=== PATIENT | male | born 1930 | race Caucasian/White ===

== ENCOUNTER 2018-09-17 16:44 | Emergency (ER) | payer MEDICARE, MEDICAID, OTHER ==
[2018-09-17 18:41] LABS: HEMATOCRIT 33.2 % (42.0-52.0); HEMOGLOBIN 10.6 g/dl (13.5-17.5); MEAN CORPUSCULAR HEMOGLOBIN 32.8 pg (27.0-33.0); MEAN CORPUSCULAR HGB CONC 31.9 g/dl (32.0-36.5); MEAN CORPUSCULAR VOLUME 102.8 fl (80.0-96.0); PLATELET COUNT, AUTOMATED 213 10^3/uL (150-450); RED BLOOD COUNT 3.23 10^6/uL (4.30-6.10); WHITE BLOOD COUNT 6.2 10^3/uL (4.0-10.0)
[2018-09-17 19:16] LABS: ACETAMINOPHEN LEVEL 3.9 UG/ML (10.0-30.0); ALBUMIN 2.6 GM/DL (3.2-5.2); ALBUMIN/GLOBULIN RATIO 0.87 (1.00-1.93); ALKALINE PHOSPHATASE 97 U/L (45-117); ALT/SGPT 8 U/L (12-78); ANION GAP 10 MEQ/L (8-16); AST/SGOT 20 U/L (7-37); BILIRUBIN,DIRECT 0.1 MG/DL (0.0-0.2); BILIRUBIN,TOTAL 0.5 MG/DL (0.2-1.0); BLOOD UREA NITROGEN 22 MG/DL (7-18); CALCIUM LEVEL 7.5 MG/DL (8.8-10.2); CARBON DIOXIDE LEVEL 30 MEQ/L (21-32); CHLORIDE LEVEL 107 MEQ/L (98-107); CREATININE FOR GFR 0.93 MG/DL (0.70-1.30); ETHYL ALCOHOL (ETHANOL) < 0.003 % (0.000-0.010); GLOMERULAR FILTRATION RATE > 60.0 (>35); GLUCOSE, FASTING 90 MG/DL (70-100); POTASSIUM SERUM 3.1 MEQ/L (3.5-5.1); SALICYLATE LEVEL < 1.7 MG/DL (5.0-30.0); SODIUM LEVEL 147 MEQ/L (136-145); THYROID STIMULATING HORMONE 0.631 uIU/ML (0.358-3.740); TOTAL PROTEIN 5.6 GM/DL (6.4-8.2)
[2018-09-17 21:04] LABS: KETONE, URINE AUTO RFX TRACE mg/dL (NEGATIVE); LEUKOCYTE ESTERASE UR AUTO RFX NEGATIVE (NEGATIVE); NITRITE, URINE AUTO RFX NEGATIVE (NEGATIVE); RBC, URINE AUTO RFX 6 /HPF (0-3); SPECIFIC GRAVITY UR AUTO RFX 1.015 (1.002-1.035); SQUAM EPITHELIAL CELL UR AURFX 0 /HPF (0-6); WBC, URINE AUTO RFX 1 /HPF (0-3)
[2018-09-17 21:19] LABS: AMPHETAMINES LEVEL URINE NEGATIVE (NEGATIVE); BARBITURATES URINE NEGATIVE (NEGATIVE); BENZODIAZEPINES URINE NEGATIVE (NEGATIVE); CANNABINOIDS URINE NEGATIVE (NEGATIVE); COCAINE METABOLITE URINE NEGATIVE (NEGATIVE); METHADONE URINE NEGATIVE (NEGATIVE); OPIATES URINE NEGATIVE (NEGATIVE); PHENCYCLIDINE URINE NEGATIVE (NEGATIVE)
[2018-09-17 22:07] LABS: INR 1.62; PROTHROMBIN TIME 19.5 SECONDS (12.1-14.4)
[2018-09-17 22:08] LABS: PARTIAL THROMBOPLASTIN TIME 38.9 SECONDS (25.4-37.6)
[2018-09-17] MEDS: POTASSIUM CHLORIDE 10 MEQ SR TABLET PO (22:19)
== END 2018-09-18 | disposition home or self-care (01) ==
LOC: M ED 09-18
DX: F32.9 Major depressive disorder, single episode, unspecified (principal); I44.0 Atrioventricular block, first degree; G20 Parkinson's disease; Z98.890 Other specified postprocedural states; Z96.649 Presence of unspecified artificial hip joint; Z88.1 Allergy status to other antibiotic agents; Z88.5 Allergy status to narcotic agent; Z88.2 Allergy status to sulfonamides; Z88.0 Allergy status to penicillin; Z88.8 Allergy status to other drugs, medicaments and biological substances; Z79.899 Other long term (current) drug therapy; Z79.01 Long term (current) use of anticoagulants
CPT/HCPCS: 71045

== ENCOUNTER 2019-06-07 16:34 | Inpatient (IN) | payer MEDICARE, MEDICAID ==
[~2019-06-07 16:34] MED LIST: ACET65TA; ASPI81TA3; COUM1TAB18; FLOM0.4C39; HYDR25TA6; ISOS20TA3; LISI40TA; PRAV1TAB39; TENO50TA; TRAM50TA2; VITAMIN B12; VITAMIN C
[2019-06-07 18:00] VITALS: BP 135/63
--- NOTE | 2019-06-07 18:34 | HPEPDOC ---
[facility] Medical History & Physical Date of Admission Jun 07, 2019 History and Physical CHIEF COMPLAINT: GI bleed HISTORY OF PRESENT ILLNESS: 88 yo male transferred from [facility] for GI bleed. Patient orginally admitted for altered mental status, with recent history of CDiff infection. Patient was found to have a urinary tract infection, and developed heme + areli colored stools. He previously did have blood in his stools, and was seen by GI with recs for colonoscopy at a later date after his CDiff had resolved. His CDiff PCR was negative x 2 at [place]. His hemoglobin dropped to 6.7 g/dL, and he was transferred 1 unit PRBC. He apparently has a chronic indwelling merritt catheter secondary to abdominal pain as per report. Imaging showed ileus vs colitis (CT abd/pelvis). PAST MEDICAL HISTORY: 1. Recent CDiff 2. Parkinsons 3. Afib 4. BPH ALLERGIES: Please see below. REVIEW OF SYSTEMS: Unable to assess. HOME MEDICATIONS: Please see below. PHYSICAL EXAMINATION: VITAL SIGNS: See below GENERAL APPEARANCE: NAD, lying comfortably in bed HEENT: NC/AT, PERRL CARDIOVASCULAR: +S1S2, RRR LUNGS: CTA B/L ABDOMEN: soft, obese, +BS EXT: chronic venous stasis changes NEUROLOGICAL: follow simple commands, awake, alert, oriented only to person and president LABORATORY DATA: See below. IMAGING: MICROBIOLOGY: Please see below. ASSESSMENT: 88 yo male transferred from [place] for GI bleed/anemia, originally admitted for AMS with PMHx or recent Cdiff and UTI. #AMS - baseline unknown - CT head pending #anemia/GI bleed - serial H/H - GI consultation - possible colonoscopy - clear liquid diet #Parkinsons - continue home meds #BPH - continue home meds #Afib - rate controlled - a/c with xarleto - on hold #DVT prophylaxis - mechanical Home Medications Scheduled Amiodarone Hcl (Pacerone) 200 Mg Tablet, 200 MG PO DAILY Carbidopa/Levodopa (Carbidopa-Levodopa 25-100 Tab) 1 Each Tablet, 1 TAB PO 6XD Donepezil HCl (Donepezil HCl) 10 Mg Tablet, 10 MG PO QHS Ferrous Sulfate (Ferrous Sulfate) 325 Mg Tablet.dr, 325 MG PO BID Furosemide (Furosemide) 40 Mg Tablet, 40 MG PO DAILY Isosorbide Mononitrate (Isosorbide Mononitrate ER) 30 Mg Tab.er.24h, 30 MG PO DAILY Lactobacillus Acidophilus (Probiotic Acidophilus) 1.5 Mg Capsule, 1 CAP PO BID Levothyroxine Sodium (Levothyroxine Sodium) 112 Mcg Tablet, 112 MCG PO DAILY TAKES AT 0700 WITH 25MCG TAB TO EQUAL 137MCG Levothyroxine Sodium (Levothyroxine Sodium) 25 Mcg Tablet, 25 MCG PO DAILY TAKES AT 0600 WITH 112MCG TAB TO EQUAL 137MCG. Midodrine HCl (Midodrine HCl) 5 Mg Tablet, 5 MG PO TID 0800/1200/1600 Prazosin Hcl (Prazosin HCl) 1 Mg Capsule, 1 MG PO QHS Rasagiline Mesylate (Azilect) 0.5 Mg Tablet, 0.5 MG PO DAILY Rivaroxaban (Xarelto) 20 Mg Tablet, 20 MG PO QPM D/C AT [facility] ON 06/05. TAKES WITH DINNER Sertraline Hcl (Sertraline HCl) 50 Mg Tablet, 50 MG PO DAILY Spironolactone (Spironolactone) 25 Mg Tablet, 12.5 MG PO DAILY Tamsulosin HCl (Flomax) 0.4 Mg Capsule, 0.4 MG PO DAILY Vancomycin Hcl (Vancomycin HCl) 125 Mg Capsule, 125 MG PO QID D/C AT [facility] ON 06/06 Scheduled PRN Acetaminophen (Acetaminophen) 325 Mg Tablet, 650 MG PO Q4H PRN for PAIN Allergies Coded Allergies: Penicillins (Verified Allergy, Severe, HIVES,THROAT CLOSES, 06/08/19) cephalexin (Verified Allergy, Unknown, 06/08/19) erythromycin base (Verified Allergy, Unknown, 06/08/19) hydrocodone (Verified Allergy, Unknown, 06/08/19) morphine (Verified Allergy, Unknown, 06/08/19) streptokinase (Verified Allergy, Unknown, 06/08/19) sulfamethoxazole (Verified Allergy, Unknown, 06/08/19) trimethoprim (Verified Allergy, Unknown, 06/08/19) oxycodone (Verified Adverse Reaction, Intermediate, HALLUCINATIONS, 06/08/19) A-FIB/CHADSVASC A-FIB History Current/History of A-Fib/PAF?: No Current PO Anticoag Therapy: No DILCIA WEST MD Jun 07, 2019 18:34
[2019-06-07] MEDS ORDERED: POTA20EL PO (19:15)
[2019-06-07] MEDS ORDERED: LEVO25TA5 PO (19:18)
[2019-06-07] MEDS ORDERED: LEVO112T2 PO (19:18)
[2019-06-07] MEDS ORDERED: PACE200T PO (19:18)
[2019-06-07] MEDS ORDERED: AZIL0.5T PO (19:18)
[2019-06-07] MEDS ORDERED: FLOM0.4C39 PO (19:18)
[2019-06-07] MEDS ORDERED: SERT-141 PO (19:20)
[2019-06-07] MEDS ORDERED: XARE20TA PO (19:20)
[2019-06-07] MEDS ORDERED: MIDO5TA PO (19:20)
[2019-06-07 19:21] LABS: BASO % 0.2 % (0.0-1.0); EOS # 0.1 10^3/uL (0.0-0.50); EOS % 0.9 % (0.0-3.0); HEMATOCRIT 27.2 % (42.0-52.0); HEMOGLOBIN 8.3 g/dl (13.5-17.5); LYMPH # 0.5 10^3/uL (1.5-4.5); LYMPH % 7.4 % (24.0-44.0); MEAN CORPUSCULAR HEMOGLOBIN 28.7 pg (27.0-33.0); MEAN CORPUSCULAR HGB CONC 30.5 g/dl (32.0-36.5); MEAN CORPUSCULAR VOLUME 94.1 fl (80.0-96.0); MONO # 0.5 10^3/uL (0.0-0.8); MONO % 7.8 % (0.0-5.0); NEUTROPHILS # 5.3 10^3/uL (1.8-7.7); NEUTROPHILS % 83.1 % (36.0-66.0); PLATELET COUNT, AUTOMATED 174 10^3/uL (150-450); RED BLOOD COUNT 2.89 10^6/uL (4.30-6.10); WHITE BLOOD COUNT 6.3 10^3/uL (4.0-10.0)
[2019-06-07] MEDS ORDERED: DONE10TA90 PO (19:21)
[2019-06-07] MEDS ORDERED: VANC125C3 PO (19:22)
[2019-06-07] MEDS ORDERED: FERR325T3 PO (19:22)
[2019-06-07] MEDS ORDERED: CARB25TA9 PO (19:25)
[2019-06-07] MEDS ORDERED: NON-325T5 PO (19:25)
[2019-06-07] MEDS ORDERED: PROB1CAP10 PO (19:25)
[2019-06-07 19:27] LABS: ALBUMIN 2.1 GM/DL (3.2-5.2); ALT/SGPT 6 U/L (12-78); BILIRUBIN,TOTAL 0.9 MG/DL (0.2-1.0); BLOOD UREA NITROGEN 13 MG/DL (7-18); CALCIUM LEVEL 7.5 MG/DL (8.8-10.2); CARBON DIOXIDE LEVEL 24 MEQ/L (21-32); CHLORIDE LEVEL 116 MEQ/L (98-107); GLOMERULAR FILTRATION RATE > 60.0 (>35); GLUCOSE, FASTING 86 MG/DL (70-100); SODIUM LEVEL 148 MEQ/L (136-145); TOTAL PROTEIN 5.8 GM/DL (6.4-8.2)
[2019-06-07] MEDS ORDERED: ISOS30TA4 PO (19:28)
[2019-06-07] MEDS ORDERED: SPIR-10 PO (19:28)
[2019-06-07] MEDS ORDERED: PRAZ1CAP PO (19:28)
[2019-06-07] MEDS ORDERED: FURO40TA2 PO (19:28)
[2019-06-07 19:32] LABS: ABG BASE EXCESS -1.4 (-2.0-2.0); ABG HCO3 22.9 MEQ/L (22.0-26.0); ABG O2 SATURATION 95.1 % (95.0-99.0); ABG PARTIAL PRESSURE CO2 36.6 mmHg (35.0-45.0); ABG PARTIAL PRESSURE O2 76.9 mmHg (75.0-100.0); ABG STANDARD HCO3 23.2 MEQ/L (22.0-26.0); ABG pH (ARTERIAL) 7.414 UNITS (7.350-7.450)
[2019-06-07 20:00] VITALS: BP 162/76
[2019-06-07 21:30] VITALS: BP 130/70
--- NOTE | 2019-06-07 21:42 | CR ---
DATE OF CONSULTATION: 06/07/2019 REQUESTING PHYSICIAN: Hospitalist service. REASON FOR CONSULTATION: Decreasing hemoglobin, heme-positive stools and diarrhea. HISTORY OF PRESENT ILLNESS Mr. Townsend is an 88-year-old gentleman with multiple medical problems including Parkinson's disease, depression, anemia, atrial fibrillation, coronary artery disease, reflux, obstructive uropathy. He was recently diagnosed with C diff on one of his admissions at [facility] where he was admitted for urinary tract infection. He was apparently seen there for decreasing hemoglobin, however, it was felt that anemia was the result from his C diff colitis. He was treated with a ten day course of vancomycin; last dose per chart transfer is noted as having been given on 06/02/2019. Apparently additional testing on the stool was done which showed C diff negativity, however, the patient was having diarrhea at that time and was also noted to have some maroon, areli, green and black stools. Due to doing decreasing hemoglobin, the patient was transferred to [facility] for further evaluation. PAST MEDICAL HISTORY: Parkinson's, depression, hypertension, iron deficiency anemia, atrial fibrillation, constipation, Clostridium difficile colitis. PAST SURGICAL HISTORY: Knee surgery. FAMILY HISTORY: Hypertension, COPD, coronary artery disease. Negative for colorectal carcinoma, inflammatory bowel disease. SOCIAL HISTORY: Negative for tobacco, negative for alcohol. The patient lives at [facility] for rehab and nursing. ALLERGIES: STREPTOKINASE, PERCOCET, HYDROCODONE, ERYTHROMYCIN, KEFLEX AND PENICILLIN. MEDICATIONS: As per transfer records include: Tamsulosin, donepezil, cyanocobalamin, milk of magnesia, Zoloft, acetaminophen, amiodarone, carbidopa, iron sulfate, furosemide, isosorbide, levothyroxine, midodrine, KCl, prazosin, spironolactone, Xarelto, vancomycin - last dose 06/02/2019, Levaquin. REVIEW OF SYSTEMS: Is not reliably obtainable as the patient is slightly confused. PHYSICAL EXAMINATION: Vital signs: Temperature 98.1, pulse 67, respiratory rate 20, blood pressure 135/63, pulse ox 92% on room air. General: He is awake, alert and oriented times at least 2. He is somewhat confused about place. Head, eyes, ears, nose and throat: Is grossly without abnormality. There is no oral thrush. Negative for scleral icterus. Neck is supple, no lymphadenopathy, thyromegaly. Chest is coarse distant breath sounds. No rhonchi or crackles or wheezes. Abdomen is soft, obese, nontender. Positive bowel sounds. No masses are appreciated. Extremities: Is negative for edema. LABORATORY FINDINGS Hemoglobin 8.3, (this is status post 1 unit of packed RBCs at [facility] earlier today). WBC 6.3, platelet count 174, sodium 148, potassium 3.0, chloride 116, BUN 13, creatinine 1.0, albumin 2.1. IMPRESSION 1. Progressive anemia. 2. Blood in stool. 3. Diarrhea / recent history of C diff colitis treated with vancomycin. 4. Chronic UTI 5. Anticoagulation for atrial fibrillation. DISCUSSION I think his anemia is likely multifactorial including related to his multiple active medical conditions as well as recent and/or present Clostridium difficile colitis. His hemoglobin is dropping and his stools have been described in the chart as "areli", "brown", and "black", but also has been described as greenish loose. At this time, it is difficult to localize the source for his blood loss to lower or to upper. At this time I would recommend the followin. Monitor blood count and transfuse if necessary. 2. Monitor stools for recurrent diarrhea - I am somewhat suspicious that he still may have C diff. 3. Upper endoscopy and colonoscopy is recommended--He is quite vehemently refusing any endoscopic procedure this evening. I will rediscuss this with him when his family is at bedside tomorrow. MAE
[2019-06-07 23:04] LABS: HEMATOCRIT 24.8 % (42.0-52.0); HEMOGLOBIN 7.7 g/dl (13.5-17.5)
[2019-06-07 23:59] VITALS: BP 126/60
[2019-06-08] VITALS (9 sets, daily range): BP systolic 130–188; BP diastolic 63–91
[2019-06-08] MEDS ORDERED: POTASSIUM CHLORIDE 10 MEQ SR TABLET PO ONE ×2 (00:15→06:30)
[2019-06-08 05:58] LABS: HEMATOCRIT 28.3 % (42.0-52.0); HEMOGLOBIN 8.8 g/dl (13.5-17.5); MEAN CORPUSCULAR HEMOGLOBIN 29.7 pg (27.0-33.0); MEAN CORPUSCULAR HGB CONC 31.1 g/dl (32.0-36.5); MEAN CORPUSCULAR VOLUME 95.6 fl (80.0-96.0); PLATELET COUNT, AUTOMATED 139 10^3/uL (150-450); RED BLOOD COUNT 2.96 10^6/uL (4.30-6.10); WHITE BLOOD COUNT 5.6 10^3/uL (4.0-10.0)
[2019-06-08 06:23] LABS: ALBUMIN 2.1 GM/DL (3.2-5.2); ALT/SGPT < 6 U/L (12-78); BILIRUBIN,TOTAL 0.5 MG/DL (0.2-1.0); BLOOD UREA NITROGEN 10 MG/DL (7-18); CALCIUM LEVEL 7.6 MG/DL (8.8-10.2); CARBON DIOXIDE LEVEL 28 MEQ/L (21-32); CHLORIDE LEVEL 115 MEQ/L (98-107); CREATININE FOR GFR 1.02 MG/DL (0.70-1.30); GLOMERULAR FILTRATION RATE > 60.0 (>35); GLUCOSE, FASTING 93 MG/DL (70-100); POTASSIUM SERUM 2.8 MEQ/L (3.5-5.1); SODIUM LEVEL 149 MEQ/L (136-145); TOTAL PROTEIN 5.2 GM/DL (6.4-8.2)
[2019-06-08] MEDS: KCL 10MEQ/100ML SWI (KRUN) 10 MEQ in APPROPRIATE DILUENT 1 EA IV SCH ×4 (06:59→12:08)
[2019-06-08] MEDS ORDERED: LEVOTHYROXINE 25MCG TABLET (0.025MG) PO SCH (09:00)
[2019-06-08] MEDS ORDERED: FERROUS SULFATE 325MG TAB PO SCH (09:00)
--- NOTE | 2019-06-08 09:00 | IPNPDOC ---
Text Note Date of Service The patient was seen on 06/08/19. NOTE Subjective: Patient seen and examined at bedside. More alert today. Daughter at bedside. Patient has no medical complaints, but is a poor historian. Objective: VITAL SIGNS: See below GENERAL APPEARANCE: NAD, lying comfortably in bed HEENT: NC/AT, PERRL CARDIOVASCULAR: +S1S2, RRR LUNGS: CTA B/L ABDOMEN: soft, obese, +BS EXT: chronic venous stasis changes NEUROLOGICAL: follow simple commands, awake, alert, oriented only to person and president LABORATORY DATA: See below. ASSESSMENT: 88 yo male transferred from [place] for GI bleed/anemia, originally admitted for AMS with PMHx or recent Cdiff and UTI. #AMS - improving - daughter at bedside states not at baseline - CT head pending #anemia/GI bleed - serial H/H - GI consultation - possible colonoscopy - clear liquid diet #Parkinsons - continue home meds #BPH - continue home meds #Afib - rate controlled - a/c with xarleto - on hold #DVT prophylaxis - mechanical VS,Fishbone, I+O VS, Fishbone, I+O Laboratory Tests 06/07/19 18:48 Red Blood Count 2.89 L, Mean Corpuscular Volume 94.1, Mean Corpuscular Hemoglobin 28.7, Mean Corpuscular Hemoglobin Concent 30.5 L, Red Cell Distribution Width 17.0 H, Neutrophils (%) (Auto) 83.1 H, Lymphocytes (%) (Auto) 7.4 L, Monocytes (%) (Auto) 7.8 H, Eosinophils (%) (Auto) 0.9, Basophils (%) (Auto) 0.2, Neutrophils # (Auto) 5.3, Lymphocytes # (Auto) 0.5 L, Monocytes # (Auto) 0.5, Eosinophils # (Auto) 0.1, Basophils # (Auto) 0.0, Calcium Level 7.5 L, Aspartate Amino Transf (AST/SGOT) 16, Alanine Aminotransferase (ALT/SGPT) 6 L, Alkaline Phosphatase 69, Total Bilirubin 0.9, Total Protein 5.8 L, Albumin 2.1 L 06/07/19 22:51 06/08/19 05:42 Red Blood Count 2.96 L, Mean Corpuscular Volume 95.6, Mean Corpuscular Hemoglobin 29.7, Mean Corpuscular Hemoglobin Concent 31.1 L, Red Cell Distribution Width 17.0 H, Calcium Level 7.6 L, Aspartate Amino Transf (AST/SGOT) 15, Alanine Aminotransferase (ALT/SGPT) < 6 L, Alkaline Phosphatase 64, Total Bilirubin 0.5, Total Protein 5.2 L, Albumin 2.1 L Vital Signs Date Time Temp Pulse Resp B/P (MAP) Pulse Ox O2 Delivery O2 Flow Rate FiO2 06/08/19 05:57 97.6 63 18 134/70 (91) 94 I&O- Last 24 Hours up to 6 AM 06/08/19 06:00 Intake Total 0 ml Output Total 0 ml Balance 0 ml DILCIA WEST MD Jun 08, 2019 09:00
[2019-06-08] MEDS: SPIRONOLACTONE 12.5MG PER 1/2 TABLET PO SCH (09:28)
[2019-06-08] MEDS: FUROSEMIDE 40 MG TAB PO SCH (09:28)
[2019-06-08] MEDS: SERTRALINE HCL 50 MG TAB PO SCH (09:28)
[2019-06-08] MEDS: TAMSULOSIN 0.4 MG CAP PO SCH (09:29)
[2019-06-08] MEDS: SINEMET 25-100 MG TAB PO SCH ×5 (09:29→20:55)
[2019-06-08] MEDS: AMIODARONE 200 MG TAB (PACERONE) PO SCH (09:29)
[2019-06-08] MEDS: ISOSORBIDE MON. (IMDUR) 30 MG XR TAB PO SCH (09:30)
[2019-06-08] MEDS: MIDODRINE 5 MG TAB PO SCH ×3 (10:04→18:35)
[2019-06-08] MEDS: VANCOMYCIN ORAL SOL 250MG/5ML ORAL SYRINGE PO SCH ×4 (10:05→23:57)
[2019-06-08 11:35] LABS: CLOSTRIDIUM DIFFICILE PCR NEGATIVE (NEGATIVE)
[2019-06-08] MEDS: LEVOTHYROXINE 137MCG TABLET (0.137MG) PO SCH (12:08)
[2019-06-08] MEDS: PRAZOSIN 1 MG CAP PO SCH (20:55)
[2019-06-08] MEDS: DONEPEZIL 5 MG TAB PO SCH (20:55)
[2019-06-08] MEDS ORDERED: RIVAROXABAN 20 MG TAB (XARELTO) PO SCH (21:00)
[2019-06-09] VITALS (7 sets, daily range): BP systolic 105–139; BP diastolic 56–79
[2019-06-09] MEDS: LEVOTHYROXINE 137MCG TABLET (0.137MG) PO SCH (06:05)
[2019-06-09] MEDS: VANCOMYCIN ORAL SOL 250MG/5ML ORAL SYRINGE PO SCH ×3 (06:05→17:17)
[2019-06-09] MEDS: SINEMET 25-100 MG TAB PO SCH ×6 (06:05→20:23)
[2019-06-09 06:10] LABS: BASO % 0.2 % (0.0-1.0); EOS # 0.1 10^3/uL (0.0-0.50); EOS % 1.4 % (0.0-3.0); HEMOGLOBIN 8.6 g/dl (13.5-17.5); LYMPH # 0.4 10^3/uL (1.5-4.5); LYMPH % 6.4 % (24.0-44.0); MEAN CORPUSCULAR HEMOGLOBIN 29.5 pg (27.0-33.0); MEAN CORPUSCULAR HGB CONC 30.7 g/dl (32.0-36.5); MEAN CORPUSCULAR VOLUME 95.9 fl (80.0-96.0); MONO # 0.5 10^3/uL (0.0-0.8); MONO % 8.7 % (0.0-5.0); NEUTROPHILS # 4.7 10^3/uL (1.8-7.7); NEUTROPHILS % 82.8 % (36.0-66.0); PLATELET COUNT, AUTOMATED 125 10^3/uL (150-450); RED BLOOD COUNT 2.92 10^6/uL (4.30-6.10); WHITE BLOOD COUNT 5.7 10^3/uL (4.0-10.0)
[2019-06-09 06:43] LABS: ALBUMIN 2.1 GM/DL (3.2-5.2); ALT/SGPT < 6 U/L (12-78); BILIRUBIN,TOTAL 0.5 MG/DL (0.2-1.0); BLOOD UREA NITROGEN 7 MG/DL (7-18); CALCIUM LEVEL 7.6 MG/DL (8.8-10.2); CARBON DIOXIDE LEVEL 29 MEQ/L (21-32); CHLORIDE LEVEL 109 MEQ/L (98-107); CREATININE FOR GFR 0.99 MG/DL (0.70-1.30); GLOMERULAR FILTRATION RATE > 60.0 (>35); GLUCOSE, FASTING 90 MG/DL (70-100); POTASSIUM SERUM 2.8 MEQ/L (3.5-5.1); SODIUM LEVEL 144 MEQ/L (136-145); TOTAL PROTEIN 5.6 GM/DL (6.4-8.2)
[2019-06-09] MEDS ORDERED: POTASSIUM CHLORIDE 10 MEQ SR TABLET PO ONE ×2 (08:00→17:45)
--- NOTE | 2019-06-09 09:03 | IPNPDOC ---
Text Note Date of Service The patient was seen on 06/09/19. NOTE Subjective: Patient seen and examined at bedside. More alert today. Daughter at bedside. Patient has no medical complaints, but is a poor historian. Objective: VITAL SIGNS: See below GENERAL APPEARANCE: NAD, lying comfortably in bed HEENT: NC/AT, PERRL CARDIOVASCULAR: +S1S2, RRR LUNGS: CTA B/L ABDOMEN: soft, obese, +BS EXT: chronic venous stasis changes NEUROLOGICAL: follow simple commands, awake, alert, oriented only to person and president LABORATORY DATA: See below. ASSESSMENT: 88 yo male transferred from [place] for GI bleed/anemia, originally admitted for AMS with PMHx or recent Cdiff and UTI. #AMS/metabolic encephalopathy - multifactorial - possible infectious/electrolyte disturbance/baseline dementia - improving - daughter at bedside states not at baseline - CT head pending # acute blood loss anemia/GI bleed - h/h relatively stable - continue to follow - GI consultation appreciated - no colonoscopy - clear liquid diet - advance #Parkinsons - continue home meds #BPH - continue home meds #Afib - rate controlled - a/c with xarleto - on hold #DVT prophylaxis - mechanical VS,Fishbone, I+O VS, Fishbone, I+O Laboratory Tests 06/09/19 05:49 Red Blood Count 2.92 L, Mean Corpuscular Volume 95.9, Mean Corpuscular Hemoglobin 29.5, Mean Corpuscular Hemoglobin Concent 30.7 L, Red Cell Distribution Width 16.9 H, Neutrophils (%) (Auto) 82.8 H, Lymphocytes (%) (Auto) 6.4 L, Monocytes (%) (Auto) 8.7 H, Eosinophils (%) (Auto) 1.4, Basophils (%) (Auto) 0.2, Neutrophils # (Auto) 4.7, Lymphocytes # (Auto) 0.4 L, Monocytes # (Auto) 0.5, Eosinophils # (Auto) 0.1, Basophils # (Auto) 0.0, Calcium Level 7.6 L, Aspartate Amino Transf (AST/SGOT) 12, Alanine Aminotransferase (ALT/SGPT) < 6 L, Alkaline Phosphatase 64, Total Bilirubin 0.5, Total Protein 5.6 L, Albumin 2.1 L Vital Signs Date Time Temp Pulse Resp B/P (MAP) Pulse Ox O2 Delivery O2 Flow Rate FiO2 06/09/19 08:35 98.3 54 19 130/71 (14) 93 I&O- Last 24 Hours up to 6 AM 06/09/19 06:00 Intake Total 1230 ml Output Total 0 ml Balance 1230 ml DILCIA WEST MD Jun 09, 2019 09:03
[2019-06-09] MEDS: SERTRALINE HCL 50 MG TAB PO SCH (09:04)
[2019-06-09] MEDS: AMIODARONE 200 MG TAB (PACERONE) PO SCH (09:04)
[2019-06-09] MEDS: TAMSULOSIN 0.4 MG CAP PO SCH (09:04)
[2019-06-09] MEDS: MIDODRINE 5 MG TAB PO SCH ×3 (09:04→17:16)
[2019-06-09] MEDS: ISOSORBIDE MON. (IMDUR) 30 MG XR TAB PO SCH (09:04)
[2019-06-09] MEDS: FUROSEMIDE 40 MG TAB PO SCH (09:05)
[2019-06-09] MEDS: SPIRONOLACTONE 12.5MG PER 1/2 TABLET PO SCH (09:07)
--- NOTE | 2019-06-09 10:44 | REP ---
CT BRAIN WITHOUT CONTRAST: HISTORY: Altered mental status. Comparison head CT study September 17, 2018. CT FINDINGS: Preliminary digital net repairer radiograph is unremarkable. The bony calvarium is intact. Visualized paranasal sinuses are clear. Vascular calcifications noted in the distal right internal carotid artery. There is moderate diffuse cerebral atrophy noted on soft-tissue window settings. There is no evidence of intracranial hemorrhage. No acute infarction is seen. The atrophic changes are stable from September 17, 2018. There are some small vessel atherosclerotic changes in the periventricular white matter particularly in the right parietal lobe unchanged. No acute infarction is seen. No extra-axial fluid collection or midline shift is noted. IMPRESSION: Vascular calcification, diffuse moderate atrophy, small vessel changes. Stable findings from September 17, 2018. No acute intracranial abnormality. Electronically Signed by Jayro Milan MD 06/09/2019 02:03 P
[2019-06-09] MEDS ORDERED: SLF 3 ML SYR IV PRN (15:00)
[2019-06-09 15:48] LABS: BLOOD UREA NITROGEN 8 MG/DL (7-18); CALCIUM LEVEL 7.4 MG/DL (8.8-10.2); CARBON DIOXIDE LEVEL 31 MEQ/L (21-32); CHLORIDE LEVEL 105 MEQ/L (98-107); GLOMERULAR FILTRATION RATE > 60.0 (>35); GLUCOSE, FASTING 102 MG/DL (70-100); POTASSIUM SERUM 2.8 MEQ/L (3.5-5.1); SODIUM LEVEL 141 MEQ/L (136-145)
[2019-06-09] MEDS: CHOLESTYRAMINE 4 GM PWD PKT PO SCH (19:55)
[2019-06-09] MEDS: DONEPEZIL 5 MG TAB PO SCH (20:23)
[2019-06-09] MEDS: PRAZOSIN 1 MG CAP PO SCH (20:25)
[2019-06-09] MEDS: SLF 3 ML SYR IV SCH (20:27)
[2019-06-10] MEDS: VANCOMYCIN ORAL SOL 250MG/5ML ORAL SYRINGE PO SCH ×4 (00:14→16:59)
[2019-06-10 04:00] VITALS: BP 133/65
[2019-06-10 05:57] LABS: HEMATOCRIT 27.7 % (42.0-52.0); HEMOGLOBIN 8.7 g/dl (13.5-17.5); MEAN CORPUSCULAR HEMOGLOBIN 29.8 pg (27.0-33.0); MEAN CORPUSCULAR HGB CONC 31.4 g/dl (32.0-36.5); MEAN CORPUSCULAR VOLUME 94.9 fl (80.0-96.0); PLATELET COUNT, AUTOMATED 127 10^3/uL (150-450); RED BLOOD COUNT 2.92 10^6/uL (4.30-6.10); WHITE BLOOD COUNT 4.5 10^3/uL (4.0-10.0)
[2019-06-10] MEDS: SLF 3 ML SYR IV SCH ×3 (06:00→21:45)
[2019-06-10] MEDS: CHOLESTYRAMINE 4 GM PWD PKT PO SCH ×3 (06:13→21:44)
[2019-06-10] MEDS: LEVOTHYROXINE 137MCG TABLET (0.137MG) PO SCH (06:14)
[2019-06-10] MEDS: SINEMET 25-100 MG TAB PO SCH ×7 (06:14→21:45)
[2019-06-10 06:40] LABS: BLOOD UREA NITROGEN 9 MG/DL (7-18); CALCIUM LEVEL 7.3 MG/DL (8.8-10.2); CARBON DIOXIDE LEVEL 30 MEQ/L (21-32); CHLORIDE LEVEL 106 MEQ/L (98-107); CREATININE FOR GFR 1.04 MG/DL (0.70-1.30); GLOMERULAR FILTRATION RATE > 60.0 (>35); GLUCOSE, FASTING 95 MG/DL (70-100); MAGNESIUM LEVEL 1.8 MG/DL (1.8-2.4); POTASSIUM SERUM 2.9 MEQ/L (3.5-5.1); SODIUM LEVEL 141 MEQ/L (136-145)
[2019-06-10 08:00] VITALS: BP 152/78
[2019-06-10] MEDS: POTASSIUM CHLORIDE 10 MEQ SR TABLET PO SCH (08:05)
[2019-06-10] MEDS: MIDODRINE 5 MG TAB PO SCH ×3 (08:05→16:59)
[2019-06-10] MEDS: ISOSORBIDE MON. (IMDUR) 30 MG XR TAB PO SCH (08:06)
[2019-06-10] MEDS: FUROSEMIDE 40 MG TAB PO SCH (08:06)
[2019-06-10] MEDS: AMIODARONE 200 MG TAB (PACERONE) PO SCH (08:06)
[2019-06-10] MEDS: SPIRONOLACTONE 12.5MG PER 1/2 TABLET PO SCH (08:06)
[2019-06-10] MEDS: SERTRALINE HCL 50 MG TAB PO SCH (08:06)
[2019-06-10] MEDS: TAMSULOSIN 0.4 MG CAP PO SCH (08:06)
[2019-06-10 10:55] LABS: CREATININE,RANDOM URINE 90.8 MG/DL; POTASSIUM RANDOM URINE 19.2 MEQ/L; SODIUM,RANDOM URINE 74 MEQ/L
[2019-06-10 12:00] VITALS: BP 147/83
--- NOTE | 2019-06-10 13:21 | IPNPDOC ---
Text Note Date of Service The patient was seen on 06/10/19. NOTE Subjective: Patient seen and examined at bedside. More alert today. Daughter at bedside. Patient has no medical complaints, but is a poor historian. Objective: VITAL SIGNS: See below GENERAL APPEARANCE: NAD, lying comfortably in bed HEENT: NC/AT, PERRL CARDIOVASCULAR: +S1S2, RRR LUNGS: CTA B/L ABDOMEN: soft, obese, +BS EXT: chronic venous stasis changes NEUROLOGICAL: follow simple commands, awake, alert LABORATORY DATA: See below. ASSESSMENT: 88 yo male transferred from [place] for GI bleed/anemia, originally admitted for AMS with PMHx or recent Cdiff and UTI. #AMS/metabolic encephalopathy - multifactorial - possible infectious/electrolyte disturbance/baseline dementia - improving - daughter at bedside states not at baseline - CT head no acute pathology #UTI - cultures pending - was previously being treated for UTI # acute blood loss anemia/GI bleed - h/h relatively stable - continue to follow - GI consultation appreciated - no colonoscopy #hypokalemia - persistent - possibly secondary to diarrhea - continue to follow closely and replete as needed #Parkinsons - continue home meds - rasagiline not available #BPH - continue home meds #Afib - rate controlled - a/c with xarleto - on hold #DVT prophylaxis - mechanical VS,Fishbone, I+O VS, Fishbone, I+O Laboratory Tests 06/09/19 15:09 Calcium Level 7.4 L 06/10/19 05:41 Calcium Level 7.3 L, Red Blood Count 2.92 L, Mean Corpuscular Volume 94.9, Mean Corpuscular Hemoglobin 29.8, Mean Corpuscular Hemoglobin Concent 31.4 L, Red Cell Distribution Width 16.6 H Vital Signs Date Time Temp Pulse Resp B/P (MAP) Pulse Ox O2 Delivery O2 Flow Rate FiO2 06/10/19 12:00 97.6 61 18 147/83 (104) 96 I&O- Last 24 Hours up to 6 AM 06/10/19 06:00 Intake Total 880 ml Output Total 1 ml Balance 879 ml DILCIA WEST MD Jun 10, 2019 13:21
[2019-06-10] MEDS: LACTOBACILLUS ACIDOPHILUS CAP (BACID) PO SCH ×3 (15:02→21:44)
[2019-06-10 16:00] VITALS: BP 117/66
[2019-06-10 20:00] VITALS: BP 129/66
[2019-06-10] MEDS: PRAZOSIN 1 MG CAP PO SCH (21:44)
[2019-06-10] MEDS: DONEPEZIL 5 MG TAB PO SCH (21:45)
[2019-06-10 23:59] VITALS: BP 130/59
[2019-06-11] MEDS: VANCOMYCIN ORAL SOL 250MG/5ML ORAL SYRINGE PO SCH ×4 (00:23→18:02)
[2019-06-11 04:00] VITALS: BP 140/72
[2019-06-11] MEDS: SINEMET 25-100 MG TAB PO SCH ×6 (05:20→21:14)
[2019-06-11] MEDS: SLF 3 ML SYR IV SCH ×3 (05:20→21:14)
[2019-06-11] MEDS: LEVOTHYROXINE 137MCG TABLET (0.137MG) PO SCH (05:20)
[2019-06-11 06:24] LABS: HEMATOCRIT 28.1 % (42.0-52.0); HEMOGLOBIN 8.7 g/dl (13.5-17.5); MEAN CORPUSCULAR HEMOGLOBIN 29.5 pg (27.0-33.0); MEAN CORPUSCULAR VOLUME 95.3 fl (80.0-96.0); PLATELET COUNT, AUTOMATED 115 10^3/uL (150-450); RED BLOOD COUNT 2.95 10^6/uL (4.30-6.10); WHITE BLOOD COUNT 3.9 10^3/uL (4.0-10.0)
[2019-06-11] MEDS: CHOLESTYRAMINE 4 GM PWD PKT PO SCH ×3 (06:30→19:48)
[2019-06-11 07:28] LABS: BLOOD UREA NITROGEN 8 MG/DL (7-18); CALCIUM LEVEL 7.3 MG/DL (8.8-10.2); CARBON DIOXIDE LEVEL 29 MEQ/L (21-32); CHLORIDE LEVEL 107 MEQ/L (98-107); CREATININE FOR GFR 0.97 MG/DL (0.70-1.30); GLOMERULAR FILTRATION RATE > 60.0 (>35); GLUCOSE, FASTING 97 MG/DL (70-100); POTASSIUM SERUM 2.9 MEQ/L (3.5-5.1); SODIUM LEVEL 142 MEQ/L (136-145)
[2019-06-11 08:00] VITALS: BP 146/82
--- NOTE | 2019-06-11 08:06 | IPNPDOC ---
Text Note Date of Service The patient was seen on 06/11/19. NOTE Subjective: Patient seen and examined at bedside. Mentation slowly improving. Patient has no medical complaints, but is a poor historian. Objective: VITAL SIGNS: See below GENERAL APPEARANCE: NAD, lying comfortably in bed eating breakfast HEENT: NC/AT, PERRL CARDIOVASCULAR: +S1S2, RRR LUNGS: CTA B/L ABDOMEN: soft, obese, +BS EXT: chronic venous stasis changes NEUROLOGICAL: follow simple commands, awake, alert, oriented to person, place, president LABORATORY DATA: See below. ASSESSMENT: 88 yo male transferred from [place] for GI bleed/anemia, originally admitted for AMS with PMHx or recent Cdiff and UTI. #AMS/metabolic encephalopathy - multifactorial - possible infectious/electrolyte disturbance/baseline dementia - improving - CT head no acute pathology #UTI - cultures pending - was previously being treated for UTI #diarrhea - check CDiff # acute blood loss anemia/GI bleed - h/h relatively stable - continue to follow - GI consultation appreciated - no colonoscopy #hypokalemia - persistent - possibly secondary to diarrhea - continue to follow closely and replete as needed #Parkinsons - continue home meds - rasagiline not available #BPH - continue home meds #Afib - rate controlled - a/c with xarleto - on hold #DVT prophylaxis - mechanical VS,Fishbone, I+O VS, Fishbone, I+O Laboratory Tests 06/11/19 06:10 Red Blood Count 2.95 L, Mean Corpuscular Volume 95.3, Mean Corpuscular Hemoglobin 29.5, Mean Corpuscular Hemoglobin Concent 31.0 L, Red Cell Distribution Width 16.4 H, Calcium Level 7.3 L Vital Signs Date Time Temp Pulse Resp B/P (MAP) Pulse Ox O2 Delivery O2 Flow Rate FiO2 06/11/19 04:00 98.1 67 18 140/72 (94) 93 I&O- Last 24 Hours up to 6 AM0 06/11/19 06:00 Intake Total 720 ml Output Total 150 ml Balance 570 ml DILCIA WEST MD Jun 11, 2019 08:06
[2019-06-11] MEDS: MIDODRINE 5 MG TAB PO SCH ×3 (08:18→17:06)
[2019-06-11] MEDS: ISOSORBIDE MON. (IMDUR) 30 MG XR TAB PO SCH (08:19)
[2019-06-11] MEDS: POTASSIUM CHLORIDE 10 MEQ SR TABLET PO SCH (08:19)
[2019-06-11] MEDS: SPIRONOLACTONE 12.5MG PER 1/2 TABLET PO SCH (08:19)
[2019-06-11] MEDS: LACTOBACILLUS ACIDOPHILUS CAP (BACID) PO SCH ×3 (08:20→21:13)
[2019-06-11] MEDS: AMIODARONE 200 MG TAB (PACERONE) PO SCH (08:20)
[2019-06-11] MEDS: TAMSULOSIN 0.4 MG CAP PO SCH (08:20)
[2019-06-11] MEDS: FUROSEMIDE 40 MG TAB PO SCH (08:20)
[2019-06-11] MEDS: SERTRALINE HCL 50 MG TAB PO SCH (08:20)
[2019-06-11 12:00] VITALS: BP 120/69
[2019-06-11 16:00] VITALS: BP 140/83
[2019-06-11] MEDS ORDERED: POTASSIUM CHLORIDE 10 MEQ SR TABLET PO ONE (17:00)
[2019-06-11 20:00] VITALS: BP 138/69
[2019-06-11] MEDS: DONEPEZIL 5 MG TAB PO SCH (21:14)
[2019-06-11] MEDS: PRAZOSIN 1 MG CAP PO SCH (21:14)
[2019-06-11 23:59] VITALS: BP 143/71
[2019-06-12] MEDS: VANCOMYCIN ORAL SOL 250MG/5ML ORAL SYRINGE PO SCH ×4 (00:21→18:15)
[2019-06-12 04:00] VITALS: BP 125/59
[2019-06-12] MEDS: CHOLESTYRAMINE 4 GM PWD PKT PO SCH ×3 (05:30→20:31)
[2019-06-12 05:55] LABS: HEMATOCRIT 28.8 % (42.0-52.0); HEMOGLOBIN 8.9 g/dl (13.5-17.5); MEAN CORPUSCULAR HEMOGLOBIN 28.7 pg (27.0-33.0); MEAN CORPUSCULAR HGB CONC 30.9 g/dl (32.0-36.5); MEAN CORPUSCULAR VOLUME 92.9 fl (80.0-96.0); PLATELET COUNT, AUTOMATED 110 10^3/uL (150-450); WHITE BLOOD COUNT 3.9 10^3/uL (4.0-10.0)
[2019-06-12 06:14] LABS: BLOOD UREA NITROGEN 10 MG/DL (7-18); CALCIUM LEVEL 7.5 MG/DL (8.8-10.2); CARBON DIOXIDE LEVEL 30 MEQ/L (21-32); CHLORIDE LEVEL 108 MEQ/L (98-107); CREATININE FOR GFR 0.91 MG/DL (0.70-1.30); GLOMERULAR FILTRATION RATE > 60.0 (>35); GLUCOSE, FASTING 87 MG/DL (70-100); MAGNESIUM LEVEL 1.9 MG/DL (1.8-2.4); POTASSIUM SERUM 3.3 MEQ/L (3.5-5.1); SODIUM LEVEL 143 MEQ/L (136-145)
[2019-06-12] MEDS: LEVOTHYROXINE 137MCG TABLET (0.137MG) PO SCH (06:35)
[2019-06-12] MEDS: SINEMET 25-100 MG TAB PO SCH ×6 (06:35→22:15)
[2019-06-12] MEDS: SLF 3 ML SYR IV SCH ×3 (06:35→22:15)
[2019-06-12] MEDS: SPIRONOLACTONE 12.5MG PER 1/2 TABLET PO SCH (08:22)
[2019-06-12] MEDS: SERTRALINE HCL 50 MG TAB PO SCH (08:22)
[2019-06-12] MEDS: AMIODARONE 200 MG TAB (PACERONE) PO SCH (08:22)
[2019-06-12] MEDS: TAMSULOSIN 0.4 MG CAP PO SCH (08:22)
[2019-06-12] MEDS: FUROSEMIDE 40 MG TAB PO SCH (08:22)
[2019-06-12] MEDS: MIDODRINE 5 MG TAB PO SCH ×3 (08:22→18:14)
[2019-06-12] MEDS: ISOSORBIDE MON. (IMDUR) 30 MG XR TAB PO SCH (08:22)
[2019-06-12] MEDS: LACTOBACILLUS ACIDOPHILUS CAP (BACID) PO SCH ×3 (08:23→22:15)
[2019-06-12] MEDS: POTASSIUM CHLORIDE 10 MEQ SR TABLET PO SCH (08:23)
--- NOTE | 2019-06-12 08:24 | IPNPDOC ---
Text Note Date of Service The patient was seen on 06/12/19. NOTE Subjective: Patient seen and examined at bedside. Mentation slowly improving. Patient has no medical complaints, but is a poor historian. Objective: VITAL SIGNS: See below GENERAL APPEARANCE: NAD, lying comfortably in bed eating breakfast HEENT: NC/AT, PERRL CARDIOVASCULAR: +S1S2, RRR LUNGS: CTA B/L ABDOMEN: soft, obese, +BS EXT: chronic venous stasis changes NEUROLOGICAL: follow simple commands, awake, alert, oriented to person, place, president LABORATORY DATA: See below. ASSESSMENT: 88 yo male transferred from [place] for GI bleed/anemia, originally admitted for AMS with PMHx of recent Cdiff and UTI. #AMS/metabolic encephalopathy - continues to improve - multifactorial - possible infectious/electrolyte disturbance/baseline dementia - CT head no acute pathology #UTI - UA is positive but cultures show no growth - was previously being treated for UTI #diarrhea - slowly improving - check CDiff - no stool polys # acute blood loss anemia/GI bleed - h/h relatively stable - continue to follow - GI consultation appreciated - patient is not interested in further investigations, daughter agrees #hypokalemia - possibly secondary to diarrhea - continue to follow and replete as needed #Parkinsons - continue home meds - rasagiline not available #BPH - continue home meds #Afib - rate controlled - a/c with xarleto - on hold given GI bleed #DVT prophylaxis - mechanical Dispo: can transfer to med/surg off tele; discharge planning VS,Garcia, I+O VS, Garcia, I+O Laboratory Tests 06/11/19 14:54 06/12/19 05:05 Red Blood Count 3.10 L, Mean Corpuscular Volume 92.9, Mean Corpuscular Hemoglobin 28.7, Mean Corpuscular Hemoglobin Concent 30.9 L, Red Cell Distribution Width 16.2 H, Calcium Level 7.5 L Vital Signs Date Time Temp Pulse Resp B/P (MAP) Pulse Ox O2 Delivery O2 Flow Rate FiO2 06/12/19 04:00 98.3 64 16 125/59 (81) 93 I&O- Last 24 Hours up to 6 AM 06/12/19 06:00 Intake Total 720 ml Output Total 0 ml Balance 720 ml DILCIA WEST MD Jun 12, 2019 08:24
[2019-06-12 09:00] VITALS: BP 148/77
[2019-06-12 12:00] VITALS: BP 150/64
[2019-06-12 13:44] LABS: CLOSTRIDIUM DIFFICILE PCR NEGATIVE (NEGATIVE)
[2019-06-12 20:00] VITALS: BP 131/64
[2019-06-12] MEDS: PRAZOSIN 1 MG CAP PO SCH (22:15)
[2019-06-12] MEDS: DONEPEZIL 5 MG TAB PO SCH (22:15)
[2019-06-13] VITALS: BP 117/56
[2019-06-13] MEDS: VANCOMYCIN ORAL SOL 250MG/5ML ORAL SYRINGE PO SCH ×3 (00:43→11:53)
[2019-06-13 04:00] VITALS: BP 130/60
[2019-06-13] MEDS: LEVOTHYROXINE 137MCG TABLET (0.137MG) PO SCH (05:15)
[2019-06-13] MEDS: SLF 3 ML SYR IV SCH (05:15)
[2019-06-13] MEDS: SINEMET 25-100 MG TAB PO SCH ×3 (05:15→11:53)
[2019-06-13] MEDS: CHOLESTYRAMINE 4 GM PWD PKT PO SCH ×2 (05:58→11:12)
[2019-06-13 06:00] LABS: HEMATOCRIT 28.2 % (42.0-52.0); HEMOGLOBIN 8.6 g/dl (13.5-17.5); MEAN CORPUSCULAR HEMOGLOBIN 28.4 pg (27.0-33.0); MEAN CORPUSCULAR HGB CONC 30.5 g/dl (32.0-36.5); MEAN CORPUSCULAR VOLUME 93.1 fl (80.0-96.0); PLATELET COUNT, AUTOMATED 110 10^3/uL (150-450); RED BLOOD COUNT 3.03 10^6/uL (4.30-6.10)
[2019-06-13 06:20] LABS: BLOOD UREA NITROGEN 9 MG/DL (7-18); CALCIUM LEVEL 7.6 MG/DL (8.8-10.2); CARBON DIOXIDE LEVEL 31 MEQ/L (21-32); CHLORIDE LEVEL 107 MEQ/L (98-107); CREATININE FOR GFR 1.05 MG/DL (0.70-1.30); GLOMERULAR FILTRATION RATE > 60.0 (>35); GLUCOSE, FASTING 83 MG/DL (70-100); POTASSIUM SERUM 3.4 MEQ/L (3.5-5.1); SODIUM LEVEL 141 MEQ/L (136-145)
[2019-06-13 08:00] VITALS: BP 137/69
[2019-06-13] MEDS: SERTRALINE HCL 50 MG TAB PO SCH (08:46)
[2019-06-13] MEDS: TAMSULOSIN 0.4 MG CAP PO SCH (08:47)
[2019-06-13] MEDS: FUROSEMIDE 40 MG TAB PO SCH (08:47)
[2019-06-13] MEDS: POTASSIUM CHLORIDE 10 MEQ SR TABLET PO SCH (08:47)
[2019-06-13 08:48] VITALS: BP 137/69
[2019-06-13] MEDS: ISOSORBIDE MON. (IMDUR) 30 MG XR TAB PO SCH (08:48)
[2019-06-13] MEDS: SPIRONOLACTONE 12.5MG PER 1/2 TABLET PO SCH (08:48)
[2019-06-13] MEDS: MIDODRINE 5 MG TAB PO SCH ×2 (08:48→11:53)
[2019-06-13] MEDS: AMIODARONE 200 MG TAB (PACERONE) PO SCH (08:48)
[2019-06-13] MEDS: LACTOBACILLUS ACIDOPHILUS CAP (BACID) PO SCH (08:48)
--- NOTE | 2019-06-13 13:41 | DS.PDOC ---
Discharge Summary General Date of Admission Jun 07, 2019 at 18:18 Date of Discharge 06/13/2019 Discharge Summary PROCEDURES PERFORMED DURING STAY: None ADMITTING DIAGNOSES: 1.Acute blood loss anemia 2.s/p PRBC transfusion 3.GI Bleeding 4.Toxic metabolic encephalopathy 5.Hx of Atrial Fibrillation on Anticoagulation Xarelto 6.Hx of C.diff Colitis s/p treatment 7.Indwelling Merritt Catheter DISCHARGE DIAGNOSES: same COMPLICATIONS/CHIEF COMPLAINT: GI Bleed HISTORY OF PRESENT ILLNESS: 88 yo male transferred from [facility] for GI bleed. Patient orginally admitted for altered mental status, with recent history of CDiff infection. Patient was found to have a urinary tract infection, and developed heme + areli colored stools. He previously did have blood in his stools, and was seen by GI with recs for colonoscopy at a later date after his CDiff had resolved. His CDiff PCR was negative x 2 at [place]. His hemoglobin dropped to 6.7 g/dL, and he was transferred 1 unit PRBC. He apparently has a chronic indwelling merritt catheter secondary to abdominal pain as per report. Imaging showed ileus vs colitis (CT abd/pelvis). HOSPITAL COURSE: Pt was admitted with above presentation. Pt was transfused 1u PRBC. Hg has been stable throughout hospital stay. No episode of GI bleeding reported. Pt has been confused sec to acute medical condition superimposed on baseline dementia. GI service was consulted with recommendations as follows. Pt refused any type of GI intervention. Pt is now medically optimized to be discharged. Will resume Xarelto as there is no evidence of active bleeding and Hg is stable. Other meds continued. REASON FOR CONSULTATION: Decreasing hemoglobin, heme-positive stools and diarrhea. HISTORY OF PRESENT ILLNESS Mr. Townsend is an 88-year-old gentleman with multiple medical problems including Parkinson's disease, depression, anemia, atrial fibrillation, coronary artery disease, reflux, obstructive uropathy. He was recently diagnosed with C diff on one of his admissions at [facility] where he was admitted for urinary tract infection. He was apparently seen there for decreasing hemoglobin, however, it was felt that anemia was the result from his C diff colitis. He was treated with a ten day course of vancomycin; last dose per chart transfer is noted as having been given on 06/02/2019. Apparently additional testing on the stool was done which showed C diff negativity, however, the patient was having diarrhea at that time and was also noted to have some maroon, areli, green and black stools. Due to doing decreasing hemoglobin, the patient was transferred to [facility] for further evaluation. IMPRESSION 1. Progressive anemia. 2. Blood in stool. 3. Diarrhea / recent history of C diff colitis treated with vancomycin. 4. Chronic UTI 5. Anticoagulation for atrial fibrillation. DISCUSSION I think his anemia is likely multifactorial including related to his multiple active medical conditions as well as recent and/or present Clostridium difficile colitis. His hemoglobin is dropping and his stools have been described in the chart as "areli", "brown", and "black", but also has been described as greenish loose. At this time, it is difficult to localize the source for his blood loss to lower orto upper. At this time I would recommend the followin. Monitor blood count and transfuse if necessary. 2. Monitor stools for recurrent diarrhea - I am somewhat suspicious that he still may have C diff. 3. Upper endoscopy and colonoscopy is recommended--He is quite vehemently refusing any endoscopic procedure this evening. I will rediscuss this with him when his family is at bedside tomorrow. DD: TOMMY HUDDLESTON MD 06/07/192046 DISCHARGE MEDICATIONS: Please see below. ALLERGIES: Please see below. PHYSICAL EXAMINATION: VITAL SIGNS: See below GENERAL APPEARANCE: NAD, lying comfortably in bed HEENT: NC/AT, PERRL CARDIOVASCULAR: +S1S2, RRR LUNGS: CTA B/L ABDOMEN: soft, obese, +BS EXT: chronic venous stasis changes NEUROLOGICAL: follow simple commands, awake, alert, LABORATORY DATA: Please see below. IMAGING: Head CT 06/09/19: IMPRESSION: Vascular calcification, diffuse moderate atrophy, small vessel changes. Stable findings from September 17, 2018. No acute intracranial abnormality. PROGNOSIS: Guarded ACTIVITY: [As tolerated]. DIET:Regular DISPOSITION: [facility] Other [facility]. DISCHARGE INSTRUCTIONS: 1. return to ED with acute GI bleeding, syncope, dizziness ITEMS TO FOLLOWUP ON ON OUTPATIENT: 1. PCP in one week DISCHARGE CONDITION: optimized to dc to SNF TIME SPENT ON DISCHARGE: Greater than [30] minutes. Vital Signs/I&Os Vital Signs Date Time Temp Pulse Resp B/P (MAP) Pulse Ox O2 Delivery O2 Flow Rate FiO2 06/13/19 08:48 137/69 06/13/19 08:00 97.6 64 18 94 I&O- Last 24 Hours up to 6 AM 06/13/19 06:00 Intake Total 720 ml Output Total 0 ml Balance 720 ml Laboratory Data Labs 24H Laboratory Tests 2 06/13/19 05:25: Nucleated Red Blood Cells % (auto) 0.0, Anion Gap 3L, Glomerular Filtration Rate > 60.0, Blood Urea Nitrogen 9, Creatinine 1.05, Sodium Level 141, Potassium Level 3.4L, Chloride Level 107, Carbon Dioxide Level 31, Calcium Level 7.6L CBC/BMP Laboratory Tests 06/13/19 05:25 Red Blood Count 3.03 L, Mean Corpuscular Volume 93.1, Mean Corpuscular Hemoglobin 28.4, Mean Corpuscular Hemoglobin Concent 30.5 L, Red Cell Distribution Width 16.2 H, Calcium Level 7.6 L Microbiology Microbiology 06/07/19 Blood Culture - Final, Complete NO GROWTH AFTER 5 DAYS 06/07/19 Blood Culture - Final, Complete NO GROWTH AFTER 5 DAYS 06/08/19 Stool Lactoferrin - Final, Complete 06/10/19 Urine Culture - Final, Complete Discharge Medications Scheduled Amiodarone Hcl (Pacerone) 200 Mg Tablet, 200 MG PO DAILY, (Reported) Carbidopa/Levodopa (Carbidopa-Levodopa 25-100 Tab) 1 Each Tablet, 1 TAB PO 6XD, (Reported) Donepezil HCl (Donepezil HCl) 10 Mg Tablet, 10 MG PO QHS, (Reported) Ferrous Sulfate (Ferrous Sulfate) 325 Mg Tablet.dr, 325 MG PO BID, (Reported) Furosemide (Furosemide) 40 Mg Tablet, 40 MG PO DAILY, (Reported) Isosorbide Mononitrate (Isosorbide Mononitrate ER) 30 Mg Tab.er.24h, 30 MG PO DA SPARKLE, (Reported) Lactobacillus Acidophilus (Probiotic Acidophilus) 1.5 Mg Capsule, 1 CAP PO BID, (Reported) Levothyroxine Sodium (Levothyroxine Sodium) 112 Mcg Tablet, 112 MCG PO DAILY, (Reported) TAKES AT 0700 WITH 25MCG TAB TO EQUAL 137MCG Levothyroxine Sodium (Levothyroxine Sodium) 25 Mcg Tablet, 25 MCG PO DAILY, (Reported) TAKES AT 0600 WITH 112MCG TAB TO EQUAL 137MCG. Midodrine HCl (Midodrine HCl) 5 Mg Tablet, 5 MG PO TID, (Reported) 0800/1200/1600 Prazosin Hcl (Prazosin HCl) 1 Mg Capsule, 1 MG PO QHS, (Reported) Rasagiline Mesylate (Azilect) 0.5 Mg Tablet, 0.5 MG PO DAILY, (Reported) Rivaroxaban (Xarelto) 20 Mg Tablet, 20 MG PO QPM, (Reported) D/C AT [facility] ON 06/05. TAKES WITH DINNER Sertraline Hcl (Sertraline HCl) 50 Mg Tablet, 50 MG PO DAILY, (Reported) Spironolactone (Spironolactone) 25 Mg Tablet, 12.5 MG PO DAILY, (Reported) Tamsulosin HCl (Flomax) 0.4 Mg Capsule, 0.4 MG PO DAILY, (Reported) Scheduled PRN Acetaminophen (Acetaminophen) 325 Mg Tablet, 650 MG PO Q4H PRN for PAIN, (Reported) Allergies Coded Allergies: Penicillins (Verified Allergy, Severe, HIVES,THROAT CLOSES, 06/08/19) cephalexin (Verified Allergy, Unknown, 06/08/19) erythromycin base (Verified Allergy, Unknown, 06/08/19) hydrocodone (Verified Allergy, Unknown, 06/08/19) morphine (Verified Allergy, Unknown, 06/08/19) streptokinase (Verified Allergy, Unknown, 06/08/19) sulfamethoxazole (Verified Allergy, Unknown, 06/08/19) trimethoprim (Verified Allergy, Unknown, 06/08/19) oxycodone (Verified Adverse Reaction, Intermediate, HALLUCINATIONS, 06/08/19) MARIE GAYTAN MD Jun 13, 2019 13:41
== END 2019-06-13 13:11 | DRG 377 ==
LOC: M PCU 18:18
PROVIDERS: ADMIT Internal Medicine; ATTEND Hospitalist
PROC: 30233N1 Transfusion of Nonautologous Red Blood Cells into Peripheral Vein, Percutaneous Approach (ICD-10-PCS; principal; 2019-06-08)
DX: K92.2 Gastrointestinal hemorrhage, unspecified (principal); G93.41 Metabolic encephalopathy; D62 Acute posthemorrhagic anemia; I48.91 Unspecified atrial fibrillation; N40.1 Benign prostatic hyperplasia with lower urinary tract symptoms; N13.9 Obstructive and reflux uropathy, unspecified; G20 Parkinson's disease; I10 Essential (primary) hypertension; F03.90 Unspecified dementia, unspecified severity, without behavioral disturbance, psychotic disturbance, mood disturbance, and anxiety; Z66 Do not resuscitate; E87.6 Hypokalemia; F32.9 Major depressive disorder, single episode, unspecified; K59.00 Constipation, unspecified; D50.9 Iron deficiency anemia, unspecified; Z79.01 Long term (current) use of anticoagulants; Z79.899 Other long term (current) drug therapy; Z88.0 Allergy status to penicillin; Z88.1 Allergy status to other antibiotic agents; Z88.2 Allergy status to sulfonamides; Z88.5 Allergy status to narcotic agent; Z88.8 Allergy status to other drugs, medicaments and biological substances